=== PATIENT | female | born 1980 | race Caucasian/White ===

== ENCOUNTER 2016-07-15 21:07 | Emergency (ER) | payer OTHER | END 2016-07-15 22:15 | disposition home or self-care (01) | LOC: ER 21:07 | DX: J98.01 Acute bronchospasm (principal); B00.9 Herpesviral infection, unspecified; F17.210 Nicotine dependence, cigarettes, uncomplicated; Z79.899 Other long term (current) drug therapy; Z88.8 Allergy status to other drugs, medicaments and biological substances; Z90.49 Acquired absence of other specified parts of digestive tract | CPT/HCPCS: 96372; J1100 ==